=== PATIENT | male | born 1955 | race Asian ===

== ENCOUNTER 2019-05-27 10:28 | Day surgery (SDC) | payer MEDICARE ==
[~2019-05-27] VITALS: Ht 165.1 cm; Wt 84.5 kg
[~2019-05-27 10:28] MED LIST: ATOR10TA84 PO; METO25 PO; VALS80TA2 PO
[2019-05-27] MEDS ORDERED: FentaNYL CITRATE-PF 100 MCG/2 ML VIAL IVP ONE (10:29)
[2019-05-27] MEDS ORDERED: RINGERS SOLUTION,LACTATED 1,000 ML IV ONE ×2 (10:53→11:00)
[2019-05-27] MEDS ORDERED: BUPIVACAINE HCL/PF 0.25% 30 ML VIAL ONE (11:18)
[2019-05-27 11:19] LABS: BASOPHILS % (AUTO) 1.3 % (0.0-2.0); EOSINOPHILS % (AUTO) 4.6 % (1.0-6.0); LYMPHOCYTES # (AUTO) 1.8 K/uL (1.0-4.8); LYMPHOCYTES % (AUTO) 30.4 % (22.0-44.0); MEAN CORPUSCULAR HEMOGLOBIN 30.4 pg (26.0-34.0); MEAN CORPUSCULAR VOLUME 89 fL (80-100); MONOCYTES # (AUTO) 0.6 K/uL (0.1-1.0); MONOCYTES % (AUTO) 9.5 % (2.0-9.0); NEUTROPHILS # (AUTO) 3.3 K/uL (1.8-7.7); NEUTROPHILS % (AUTO) 54.2 % (40.0-70.0); PLATELET COUNT (AUTO) 261 K/uL (150-450); RED BLOOD CELL COUNT(AUTO) 4.93 MIL/uL (4.50-5.90)
[2019-05-27] MEDS ORDERED: LIDOCAINE/PF 1% 30 ML VIAL ONE (11:19)
[2019-05-27] MEDS ORDERED: LIDOCAINE/PF 2% 5 ML VIAL INJ ONE (12:00)
[2019-05-27] MEDS ORDERED: PROPOFOL 1% 20 ML VIAL IVP ONE (12:00)
[2019-05-27] MEDS ORDERED: KETOROLAC TROMETHAMINE 60 MG/2 ML VIAL IM ONE (12:00)
[2019-05-27] MEDS ORDERED: ACET1TAB12 PO (12:59)
[2019-05-27] MEDS ORDERED: MEPERIDINE-PF 25 MG/ML VIAL IVP PRN (13:00)
[2019-05-27] MEDS ORDERED: FentaNYL CITRATE-PF 100 MCG/2 ML VIAL IVP PRN (13:00)
[2019-05-27] MEDS ORDERED: HYDROmorphone 2 MG/ML SYRINGE IVP PRN (13:00)
[2019-05-27] MEDS ORDERED: ASPI81 PO (14:03)
[2019-05-27] MEDS ORDERED: OXYGEN THERAPY IH SCH (20:00)
== END 2019-05-27 14:50 | disposition home or self-care (01) ==
LOC: SURGERY 10:28
PROVIDERS: ATTEND Podiatrist Foot & Ankle Surgery
DX: M79.89 Other specified soft tissue disorders (principal); G47.33 Obstructive sleep apnea (adult) (pediatric); I10 Essential (primary) hypertension; E11.9 Type 2 diabetes mellitus without complications; E66.01 Morbid (severe) obesity due to excess calories; Z68.31 Body mass index [BMI] 31.0-31.9, adult; Z79.899 Other long term (current) drug therapy
CPT/HCPCS: 28039; 36415; 85025; 88305; 88342; 93005; J1885; J2704; J3010; J3490 ×3; J7120; 88341

== ENCOUNTER 2019-06-27 07:37 | Emergency (ER) | payer MEDICARE ==
[~2019-06-27] VITALS: Ht 165.1 cm; Wt 81.8 kg
[~2019-06-27 07:37] MED LIST changes: +ACET1TAB12 PO; +ASPI81 PO
[2019-06-27 09:07] VITALS: BP 105/68
== END 2019-06-27 09:16 | disposition home or self-care (01) ==
LOC: EMS 07:38
DX: J40 Bronchitis, not specified as acute or chronic (principal); I10 Essential (primary) hypertension; E78.00 Pure hypercholesterolemia, unspecified; Z79.82 Long term (current) use of aspirin